=== PATIENT | female | born 1945 | race Caucasian/White ===

== ENCOUNTER 2022-06-21 10:36 | Outpatient (CLI) | payer MEDICARE | END 2022-06-21 10:37 | disposition home or self-care (01) | LOC: CSHCP 10:36 | PROVIDERS: ATTEND Internal Medicine | DX: R05.3 Chronic cough (principal); R94.2 Abnormal results of pulmonary function studies | CPT/HCPCS: 94060; 94726; 94729; 94760 ==

== ENCOUNTER 2022-09-24 10:03 | Outpatient (CLI) | payer MEDICARE | END 2022-09-24 10:04 | disposition home or self-care (01) | LOC: CSHRAD 10:03 | PROVIDERS: ATTEND Internal Medicine | DX: R13.12 Dysphagia, oropharyngeal phase (principal); K21.9 Gastro-esophageal reflux disease without esophagitis; R05.3 Chronic cough | CPT/HCPCS: 74230 ==